=== PATIENT | female | born 1970 | race African-American/Black ===

== ENCOUNTER → 2016-11-06 | Outpatient (CLI) | payer OTHER ==
--- NOTE | 2016-11-07 08:21 | MM ---
Reason for exam: screening (asymptomatic). Last mammogram was performed 3 years and 10 months ago. History: Family history of breast cancer in mother, breast cancer in maternal grandmother, and breast cancer in maternal aunt. Physical Findings: A clinical breast exam by your physician is recommended on an annual basis and results should be correlated with mammographic findings. MG Screening Mammo w CAD Bilateral CC and MLO view(s) were taken. Prior study comparison: January 07, 2013, [facility] DIGITAL RIGHT MAMMOGRAM w/CAD. January 06, 2013, bilateral digital screening mammo w/CAD. The breast tissue is heterogeneously dense. This may lower the sensitivity of mammography. There is chronic nodularity in the right breast. There is no discrete abnormality. ASSESSMENT: Benign, BI-RAD 2 RECOMMENDATION: Routine screening mammogram of both breasts in 1 year.
== END | disposition home or self-care (01) ==
LOC: RADMAMWWP 09:19
PROVIDERS: ATTEND Family Medicine
DX: Z12.31 Encounter for screening mammogram for malignant neoplasm of breast (principal); Z80.3 Family history of malignant neoplasm of breast

== ENCOUNTER → 2016-11-15 | Outpatient (CLI) | payer OTHER ==
--- NOTE | 2016-11-15 18:01 | NM ---
EXAMINATION TYPE: NM hepatobiliary w CCK DATE OF EXAM: 11/15/2016 5:15 PM COMPARISON: NONE HISTORY: Abdominal pain TECHNIQUE: After the intravenous administration of 5.3 mCi Tc 99m Mebrofenin hepatobiliary scintigrap hy is performed. Immediate images post injection. FINDINGS: There is satisfactory initial accumulation of tracer by the liver. The gallbladder is visualized wit hin 48 minutes. The small bowel activity is noted within 10 minutes. At one hour CCK was administer ed, patient was injected with 1.5 mcg of Kinevac, and gallbladder ejection fraction is calculated at 4 %, which is below the lower limit of normal of 35%.. . IMPRESSION: No evidence of cystic duct or common bile duct obstruction. There is slight delayed appea carlin of tracer in the gallbladder. There is abnormal hypokinetic gallbladder responds with a CCK sti mulation. Ejection fraction is only 4%. This is consistent with gallbladder dysfunction. No focal daysi er defect seen.
== END | disposition home or self-care (01) ==
LOC: RADNMMAIN 15:01
PROVIDERS: ATTEND Surgery
DX: R10.84 Generalized abdominal pain (principal)
CPT/HCPCS: 78227; A9537; J2805

== ENCOUNTER 2016-12-07 08:31 | Day surgery (SDC) | payer OTHER ==
[2016-12-04 11:27] VITALS: BMI 28.8
[~2016-12-07 08:31] MED LIST: DEXAMETHASONE SOD PHOSPHATE 10 MG/ML 1 ML VIAL IV ONE; HEPARIN SODIUM,PORCINE 5,000 UNIT/ML 1 ML VIAL SQ ONE; LACTATED RINGERS 1,000 ML IV SCH; ONDANSETRON 4 MG/2 ML VIAL IVP ONE; ceFAZolin 2 GM in SODIUM CHLORIDE 0.9% 100 ML IVPB ONE
--- NOTE | 2016-12-07 08:56 | P.GSHP ---
History of Present Illness H&P Date: 12/07/16 Chief Complaint: Right upper quadrant pain This is a 46-year-old female who's had complaints of right arm pain. Her recent HIDA scan shows diminished ejection fraction consistent with biliary dyskinesia. She presents today for laparoscopic cholecystectomy. - Constitutional Constitutional: Reports as per HPI Past Medical History Past Medical History: Asthma, Fibromyalgia, Hyperlipidemia, Thyroid Disorder Additional Past Medical History / Comment(s): SCOLIOSIS History of Any Multi-Drug Resistant Organisms: None Reported Additional Past Surgical History / Comment(s): EGD, D & C. Aye Heidi 2015 Additional Past Anesthesia/Blood Transfusion Reaction / Comment(s): pt states she woke up during her last surgery Past Psychological History: Depression Smoking Status: Former smoker Past Alcohol Use History: None Reported Past Drug Use History: Marijuana - Past Family History Mother Family Medical History: Cancer Father Family Medical History: Diabetes Mellitus, Myocardial Infarction (CO) Medications and Allergies Home Medications Medication Instructions Recorded Confirmed Type Cholecalciferol [Vitamin D3] 1,000 unit PO DAILY 10/06/15 12/04/16 History HYDROcodone/APAP 5-325MG [[place] 2 tab PO BID PRN 10/06/15 12/04/16 History 5-325] Levothyroxine Sodium [Synthroid] 75 mcg PO DAILY 10/06/15 12/04/16 History Loratadine [Claritin] 10 mg PO DAILY 10/06/15 12/04/16 History Pravastatin Sodium [Pravachol] 20 mg PO DAILY 10/06/15 12/04/16 History Pregabalin [Lyrica] 75 mg PO BID 10/06/15 12/04/16 History buPROPion SR [Wellbutrin SR] 100 mg PO DAILY 10/06/15 12/04/16 History Cyclobenzaprine [Flexeril] 10 mg PO TID 12/04/16 12/04/16 History DULoxetine HCL [Cymbalta] 30 mg PO DAILY 12/04/16 12/04/16 History Ipratropium/Albuterol Sulfate 1 puff INHALATION QID PRN 12/04/16 12/04/16 History [Combivent Respimat Inhaler] Naproxen [Naprosyn] 100 mg PO BID 12/04/16 12/04/16 History Allergies Allergy/AdvReac Type Severity Reaction Status Date / Time ofloxacin [From Floxin] Allergy Intermediate Nausea & Verified 12/07/16 08:48 Vomiting Surgical - Exam - General well developed, no distress - Eyes PERRL - ENT normal pinna - Neck no masses - Respiratory normal expansion - Cardiovascular Rhythm: regular - Abdomen Abdomen: soft, non tender Assessment and Plan Plan: Papillary dyskinesia Chronic cholecystitis We'll perform laparoscopic cholecystectomy
[2016-12-07 09:24] VITALS: RESP 16
[2016-12-07] MEDS ORDERED: LIDOCAINE 1% 20 ML VIAL (10MG/ML) FOR IV START INTRADERMA ONE (09:25)
[2016-12-07] MEDS ORDERED: NEOSTIGMINE 1 MG/ML 10 ML VIAL ONE (09:32)
[2016-12-07] MEDS ORDERED: fentaNYL (PF) 50 MCG/ML 2 ML AMP ONE (09:32)
[2016-12-07] MEDS ORDERED: PROPOFOL 10 MG/ML 20 ML VIAL IV ONE (09:32)
[2016-12-07] MEDS ORDERED: LIDOCAINE 1% INJ 10MG/ML (20 ML MDV) ONE (09:32)
[2016-12-07] MEDS ORDERED: SUCCINYLCHOLINE CHLORIDE 100 MG/5 ML SYR IV ONE (09:32)
[2016-12-07] MEDS ORDERED: GLYCOPYRROLATE 0.2 MG/ML 2 ML VIAL ONE (09:32)
[2016-12-07] MEDS ORDERED: MIDAZOLAM 2 MG/2 ML VIAL ONE (09:32)
[2016-12-07] MEDS ORDERED: ROCURONIUM BROMIDE 10 MG/ML 10 ML VIAL IV ONE (09:32)
[2016-12-07] MEDS ORDERED: BUPIVACAIN-EPI 0.25%-1:200,000 30 ML VIAL SQ ONE (09:47)
[2016-12-07] MEDS ORDERED: LACTATED RINGERS 1,000 ML IV ONE (10:17)
--- NOTE | 2016-12-07 10:17 | P.OP ---
Date of Procedure: 12/07/16 Preoperative Diagnosis: Cholecystitis Postoperative Diagnosis: Cholecystitis Procedure(s) Performed: Laparoscopic cholecystectomy Anesthesia: ESTEFANÍA Surgeon: Lee Goodman Estimated Blood Loss (ml): 5 Pathology: other (Gallbladder) Condition: stable Disposition: PACU Description of Procedure: The patient was placed on the operating table. The patient received a general endotracheal tube anesthesia. The patients abdomen was prepped and draped in the usual sterile fashion. Through an infraumbilical stab incision, the fascia of the anterior abdominal wall was grasped with a pair of Kochers and then the Veress needle was placed in the peritoneal cavity. Position of the Veress needle was confirmed with positive drop test. The abdomen was then insufflated. After adequate insufflation, the 10 mm trocar was placed in the peritoneal cavity. Following this the laparoscope was placed in the peritoneal cavity. The patient was placed in the head-up, right side up position and then a 5 mm trocar was placed in the right lateral and right subcostal position under direct visualization. A 8 mm trocar was placed in the epigastric position. The gallbladder was grasped in the fundus and infundibulum. Traction on the gallbladder was placed in the lateral and the cephalad positions. The triangle of Calot was visualized.. The cystic duct was bluntly dissected until the union of the cystic duct and common bile duct was seen. The cystic duct was then divided and sealed with the Harmonic scissors. A PDS Endoloop was then placed throughout the cystic duct stump. The cystic artery divided and sealed with the Harmonic scissors. The gallbladder was then removed from the liver bed using Harmonic scissors. The gallbladder was then extracted through the epigastric port site. Operative field was checked for any bleeding spots and Harmonic scissors was used to coagulate the liver bed. The abdomen was irrigated. The trocars were removed. The skin was closed using interrupted 3-0 Vicryl suture. Dermabond dressing were applied. The patient tolerated the procedure well.
[2016-12-07 10:40] VITALS: TEMP 97
[2016-12-07] MEDS: HYDROmorphone 1 MG/ML 1 ML SYRINGE IVP PRN ×2 (10:51→10:53)
[2016-12-07] MEDS ORDERED: HYDROcodone/APAP 7.5-325MG 1 EACH TAB PO ONE (11:48)
[2016-12-07 12:02] VITALS: BP 137/76; PULSE 66
== END 2016-12-07 13:10 | disposition home or self-care (01) ==
LOC: OR 08:31
PROVIDERS: ATTEND Surgery
DX: K81.1 Chronic cholecystitis (principal); G24.9 Dystonia, unspecified; J45.909 Unspecified asthma, uncomplicated; M79.7 Fibromyalgia; E78.5 Hyperlipidemia, unspecified; E07.9 Disorder of thyroid, unspecified; F32.9 Major depressive disorder, single episode, unspecified; Z79.1 Long term (current) use of non-steroidal anti-inflammatories (NSAID); Z79.891 Long term (current) use of opiate analgesic; Z79.899 Other long term (current) drug therapy; Z88.1 Allergy status to other antibiotic agents; F17.290 Nicotine dependence, other tobacco product, uncomplicated
CPT/HCPCS: 88304; 47562; J2250; J1644; J1100; J2710; J0690; J2405; J2001; J3010; J1170; J0330; J2704

== ENCOUNTER → 2018-01-01 | Day surgery (SDC) | payer OTHER ==
[2017-12-27 13:42] VITALS: BMI 24.0
[~2018-01-01] MED LIST changes: -DEXAMETHASONE SOD PHOSPHATE 10 MG/ML 1 ML VIAL IV ONE; +GLYCOPYRROLATE 0.2 MG/ML 2 ML VIAL ONE; -HEPARIN SODIUM,PORCINE 5,000 UNIT/ML 1 ML VIAL SQ ONE; +LACTATED RINGERS 1,000 ML IV ONE; +LIDOCAINE 1% 20 ML VIAL (10MG/ML) FOR IV START INTRADERMA ONE; +LIDOCAINE 1% INJ 10MG/ML (20 ML MDV) ONE; +MIDAZOLAM 2 MG/2 ML VIAL ONE; -ONDANSETRON 4 MG/2 ML VIAL IVP ONE; +PROPOFOL 10 MG/ML 20 ML VIAL IV ONE; -ceFAZolin 2 GM in SODIUM CHLORIDE 0.9% 100 ML IVPB ONE
[2018-01-01 10:36] VITALS: TEMP 98
--- NOTE | 2018-01-01 11:48 | P.GSHP ---
History of Present Illness H&P Date: 01/01/18 Chief Complaint: GERD, constipation This a 47-year-old female who is currently to GERD and constipation. She presents for EGD and colonoscopy. Past Medical History Past Medical History: Asthma, Fibromyalgia, Hyperlipidemia, Thyroid Disorder Additional Past Medical History / Comment(s): weight loss, frequent N/V, stomach cramping, SCOLIOSIS History of Any Multi-Drug Resistant Organisms: None Reported Past Surgical History: Cholecystectomy Additional Past Surgical History / Comment(s): EGD, colonoscopy, D & C. Lap Heidi 10/18/2015 Additional Past Anesthesia/Blood Transfusion Reaction / Comment(s): pt states she woke up during her last surgery Smoking Status: Former smoker - Past Family History Father Family Medical History: Coronary Artery Disease (CAD), Diabetes Mellitus Mother Family Medical History: Cancer, Coronary Artery Disease (CAD), Diabetes Mellitus Medications and Allergies Home Medications Medication Instructions Recorded Confirmed Type HYDROcodone/APAP 5-325MG [[place] 1 tab PO BID PRN 10/06/15 12/27/17 History 5-325] Levothyroxine Sodium [Synthroid] 75 mcg PO DAILY 10/06/15 12/27/17 History Loratadine [Claritin] 10 mg PO DAILY 10/06/15 12/27/17 History Pravastatin Sodium [Pravachol] 20 mg PO DAILY 10/06/15 12/27/17 History buPROPion SR [Wellbutrin SR] 100 mg PO DAILY 10/06/15 12/27/17 History Cyclobenzaprine [Flexeril] 10 mg PO TID PRN 12/04/16 12/27/17 History DULoxetine HCL [Cymbalta] 30 mg PO DAILY 12/04/16 12/27/17 History Ipratropium/Albuterol Sulfate 1 puff INHALATION QID PRN 12/04/16 12/27/17 History [Combivent Respimat Inhaler] Naproxen [Naprosyn] 500 mg PO BID PRN 12/04/16 12/27/17 History Pregabalin [Lyrica] 150 mg PO BID PRN 12/13/17 12/27/17 History Allergies Allergy/AdvReac Type Severity Reaction Status Date / Time ofloxacin [From Floxin] Allergy Intermediate Nausea & Verified 12/27/17 13:40 Vomiting/hallucinations Surgical - Exam Vital Signs Temp Pulse Resp BP Pulse Ox 98.0 F 72 18 124/64 99 01/01/18 10:35 01/01/18 10:35 01/01/18 10:35 01/01/18 10:35 01/01/18 10:35 - General well developed, no distress - Eyes PERRL - ENT normal pinna - Neck no masses - Respiratory normal expansion - Cardiovascular Rhythm: regular - Abdomen Abdomen: soft, non tender Assessment and Plan Assessment: GERD, cast patient. We'll perform EGD colonoscopy.
--- NOTE | 2018-01-01 12:21 | P.OP ---
Date of Procedure: 01/01/18 Preoperative Diagnosis: GERD Constipation Postoperative Diagnosis: Antral gastritis No evidence of hiatal hernia Tortuous colon Procedure(s) Performed: EGD Colonoscopy Anesthesia: MAC Surgeon: Lee Goodman Pathology: other (Antrum) Condition: stable Disposition: PACU Description of Procedure: The patient's placed on the endoscopy table lateral position. She received IV sedation. The gastric was placed oropharynx and passed into the esophagus and into the stomach. Scope was then placed through the pylorus. The first and second portion of duodenum appeared normal. Scope was then brought back the antrum this appeared mildly inflamed. A biopsies performed. Scope was unretroflexed and remainder stomach appeared normal. There was no evidence of a hiatal hernia. Patient. Her periods fundoplication wrap which was in the appropriate position. The GE junction was at 39 cm. The distal esophagus and proximal esophagus appeared normal. There is known to reflux. Scope was withdrawn for patient. Next digital rectal exam was performed which revealed no abnormalities. Flexible colonoscope was then placed patient anus passed throughout the colon. The cecum could not be visualized secondary to tortuosity valve. Several times made to maneuver the scope into the cecum however this wasn't possible. Scope was withdrawn. At the level of the hepatic flexure a small submucosal lipoma. Transverse colon, descending colon appeared normal. Scope was then brought back and sigmoid colon was normal. Scope withdrawn to the rectum and this was normal. Scope withdrawn for patient. The patient is scheduled for a barium enema to evaluate the cecum.
[2018-01-01 12:32] VITALS: RESP 16
[2018-01-01 12:54] VITALS: BP 97/59; PULSE 80
--- NOTE | 2018-01-01 14:23 | XR ---
Abdomen HISTORY: Failed colonoscopy, employee operations examiner film for barium enema Single frontal view of the abdomen. Air-filled loops of small and large bowel are present. No evident pneumoperitoneum. Bone mineralizati on is maintained. Probable phleboliths in the pelvis. Lung bases not included on the exam. IMPRESSION: Retained gas noted within the small and large bowel.
--- NOTE | 2018-01-03 06:25 | FL ---
EXAMINATION TYPE: FL barium enema DATE OF EXAM: 01/02/2018 COMPARISON: NONE HISTORY: Incomplete colonoscopy. Abdominal pain with nausea. Weight loss and diarrhea. History of asia or colonoscopy with polyp removal. TECHNIQUE: A double contrast barium enema study is attempted with air and barium. A total of 4 minut es 41 seconds of fluoroscopic time was utilized during procedure. Preprocedure principal mechanical engineer image was acquir ed. A total of 20 spot images were obtained during procedure. Post procedure. Postprocedure 8 overhea d images were acquired. FINDINGS: Shale Planer Operator Helper view of the abdomen shows overall non-obstructive bowel gas pattern. Scattered pelvi c phleboliths are seen. Exam is noted suboptimal as patient has markedly redundant colon particularly sigmoid and transverse colon. After refilling enema bag twice patient was having pain and could not tolerate further attempt ed proximal investigation. There is passage of contrast into portions of right colon but not includin g entire cecum. No small bowel reflux was evident. Filling of appendix is not identified. There is a short segment in the proximal transverse colon on multiple images that shows poor distenti on versus adjacent loops but preservation of normal mucosal folds strongly favoring spasm. There is s uboptimal evaluation for polyps due to redundant folds. No obvious suspicious polyps seen. No suspici ous persistent constricting lesion noted. No significant diverticulosis or diverticulitis. IMPRESSION: Suboptimal study. Advise CT Colonography to better assess markedly redundant colon espec ially to exclude polyps and investigate cecum which could not definitively be evaluated on this study .
== END ==
LOC: ORWHC2ENDO 10:23
PROVIDERS: ATTEND Surgery
DX: K29.50 Unspecified chronic gastritis without bleeding (principal); D17.79 Benign lipomatous neoplasm of other sites; Q43.8 Other specified congenital malformations of intestine; J45.909 Unspecified asthma, uncomplicated; M79.7 Fibromyalgia; E78.5 Hyperlipidemia, unspecified; E07.9 Disorder of thyroid, unspecified; R63.4 Abnormal weight loss; Z68.24 Body mass index [BMI] 24.0-24.9, adult; Z87.891 Personal history of nicotine dependence; Z79.899 Other long term (current) drug therapy; Z88.1 Allergy status to other antibiotic agents
CPT/HCPCS: 81025; 88305; 74018; 45378; 43239; J2250; J2001; J2704; 74270

== ENCOUNTER → 2018-01-02 | Outpatient (CLI) | payer OTHER | END | disposition home or self-care (01) | LOC: RADFLMAIN 08:09 | PROVIDERS: ATTEND Surgery | DX: Z53.9 Procedure and treatment not carried out, unspecified reason (principal) ==

== ENCOUNTER → 2018-01-18 | Outpatient (CLI) | payer OTHER ==
--- NOTE | 2018-01-18 12:12 | CT ---
EXAMINATION TYPE: CT abdomen pelvis w con DATE OF EXAM: 01/18/2018 COMPARISON: NONE HISTORY: Abn colonoscopy, transverse colon stricture, cramping, constipation and diarrhea CT DLP: 1079 mGycm CONTRAST: CT scan of the abdomen and pelvis is performed with Oral Contrast and with IV Contrast, patient injec gonzalo with 100 mL of Isovue 300. FINDINGS: LUNG BASES-: No visible nodule. No infiltrate. Epigastric clips identified. LIVER/GB: No calcified gallstones. No space occupying hepatic lesion. Biliary tree is of normal ca liber. PANCREAS: No inflammation. No distinct mass. SPLEEN: No splenic enlargement. No lesion seen. ADRENALS: No nodule. No thickening. KIDNEYS/BLADDER: No hydronephrosis. No nephrolithiasis. No distinct renal mass. Urinary bladder g rossly unremarkable. BOWEL: Normal appendix. Normal bowel caliber. No inflammation. Moderate fecal stasis. Definite stri cture not appreciated although correlation with endoscopy and barium enema recommended. GENITAL ORGANS: Trace free fluid within the cul-de-sac. Ovarian follicles. LYMPH NODES: No greater than 1cm abdominal or pelvic lymph nodes are appreciated. AORTA: No significant abnormality. OSSEOUS STRUCTURES: No significant abnormality is seen. OTHER: No significant additional abnormality is seen. IMPRESSION: 1. Moderate fecal stasis. Definite stricture not appreciated although correlation with endoscopy and barium enema recommended. 2. Trace free fluid within the cul-de-sac. Ovarian follicles.
== END | disposition home or self-care (01) ==
LOC: RADCTMAIN 09:58
PROVIDERS: ATTEND Surgery
DX: R19.5 Other fecal abnormalities (principal)
CPT/HCPCS: 74177; Q9967

== ENCOUNTER → 2018-04-11 | Outpatient (CLI) | payer OTHER ==
--- NOTE | 2018-04-12 11:11 | MM ---
Reason for exam: screening (asymptomatic). Last mammogram was performed 1 year and 5 months ago. History: Family history of breast cancer in mother, breast cancer in maternal grandmother, and breast cancer in maternal aunt. Physical Findings: A clinical breast exam by your physician is recommended on an annual basis and results should be correlated with mammographic findings. MG Screening Mammo w CAD Bilateral CC and MLO view(s) were taken. Prior study comparison: November 06, 2016, bilateral MG screening mammo w CAD. January 07, 2013, [facility] DIGITAL RIGHT MAMMOGRAM w/CAD. The breast tissue is heterogeneously dense. This may lower the sensitivity of mammography. Focal asymmetry and areas of increased density bilaterally maybe on basis of interval weight loss but advise further work up. ASSESSMENT: Incomplete: need additional imaging evaluation, BI-RAD 0 RECOMMENDATION: Special view mammogram of both breasts. If lesion persists on supplemental views, image directed ultrasound is recommended. [facility] will attempt to contact patient to return for supplemental views and ultrasound if indicated.
== END | disposition home or self-care (01) ==
LOC: RADMAMWWP 13:50
PROVIDERS: ATTEND Family Medicine
DX: Z12.31 Encounter for screening mammogram for malignant neoplasm of breast (principal)
CPT/HCPCS: 77067

== ENCOUNTER → 2018-04-23 | Outpatient (CLI) | payer OTHER ==
--- NOTE | 2018-04-25 08:37 | MM ---
Reason for exam: additional evaluation requested from abnormal screening. Last mammogram was performed less than 1 month ago. History: Family history of breast cancer in mother at age 70, breast cancer in maternal grandmother at age 90, and breast cancer in maternal aunt. Physical Findings: Nurse did not find any significant physical abnormalities on exam. MG Work Up Mamm w CAD BILAT Bilateral spot compression CC, spot compression MLO, and ML view(s) were taken. Prior study comparison: April 11, 2018, bilateral MG screening mammo w CAD. November 06, 2016, bilateral MG screening mammo w CAD. January 07, 2013, [facility] DIGITAL RIGHT MAMMOGRAM w/CAD. The breast tissue is heterogeneously dense. This may lower the sensitivity of mammography. Left breast asymmetrical density posterior 12 to 1 o'clock position incompletely disperses but has the appearance of normal fibroglandular tissue on spot views. Right breast asymmetrical density incompletely disperses on the spot MLO view, but no persisting abnormality is seen on the spot CC or the ML view. These results were verbally communicated with the patient and result sheet given to the patient on 04/23/18. ASSESSMENT: Incomplete: need additional imaging evaluation, BI-RAD 0 RECOMMENDATION: Ultrasound of both breasts. (Right lower inner quadrant and Left upper outer quadrant)
--- NOTE | 2018-04-25 08:42 | USB ---
Reason for exam: additional evaluation requested from abnormal screening. History: Family history of breast cancer in mother at age 70, breast cancer in maternal grandmother at age 90, and breast cancer in maternal aunt. US Breast Workup Limited MIGUELINA Right limited breast ultrasound including focal area of concern, retroareolar and axilla demonstrates a 3 x 2 x 4 mm oval cystic lesion at 5 o'clock. (right scanned lower inner quadrant and axilla) Left limited breast ultrasound including focal area of concern, retroareolar and axilla demonstrates a 7 x 3 x 7 mm oval cystic lesion at 1 o'clock, a 6 x 3 x 6 mm oval cystic lesion at 1 o'clock and a 7 x 2 x 7 mm oval mixed lesion at 2 o'clock,likely a complicated cyst. Bilateral ductal ectasia on both sides. These results were verbally communicated with the patient and result sheet given to the patient on 04/23/18. ASSESSMENT: Probably benign, BI-RAD 3 RECOMMENDATION: Follow-up diagnostic mammogram of both breasts in 1 year.
== END | disposition home or self-care (01) ==
LOC: RADMAMWWP 06:52
PROVIDERS: ATTEND Family Medicine
DX: R92.8 Other abnormal and inconclusive findings on diagnostic imaging of breast (principal)
CPT/HCPCS: 77066